=== PATIENT | female | born 1970 | race Two or more races ===

== ENCOUNTER → 2018-09-16 | Emergency (ER) | payer SELFPAY ==
--- NOTE | 2018-09-16 17:50 | NUR ---
ED Nurse Note: Pt not in the waiting room
--- NOTE | 2018-09-16 18:18 | NUR ---
ED Nurse Note: Pt not in the waiting room
--- NOTE | 2018-09-16 19:03 | NUR ---
ED Nurse Note: Patient not in waiting room
--- NOTE | 2018-09-16 21:44 | Emergency Room Report ---
History of Present Illness General Chief Complaint: To Be Triaged Medical Decision Making Diagnostic Impression: Primary Impression: Patient left without being seen ER Course Patient left without being seen Status: unchanged Disposition: LEFT W/OUT BEING SEEN Condition: Stable Referrals: NOT CHOSEN IPA/,REFERRING (PCP) Santiago Beckford MD Sep 16, 2018 21:44
== END | disposition left against medical advice (07) ==
LOC: EMR 19:00
DX: R05 Cough (principal); Z53.21 Procedure and treatment not carried out due to patient leaving prior to being seen by health care provider